=== PATIENT | female | born 1965 | race Caucasian/White ===

== ENCOUNTER 2017-12-04 10:44 | Emergency (ER) | payer OTHER | END 2017-12-04 11:51 | disposition home or self-care (01) | LOC: E/R 10:44 | DX: J02.9 Acute pharyngitis, unspecified (principal) | CPT/HCPCS: 99283; Z7502 ==

== ENCOUNTER 2018-01-15 08:41 | Emergency (ER) | payer OTHER ==
[2018-01-15] MEDS: IBUPROFEN 800 MG TAB PO (09:08)
[2018-01-15] MEDS: AMOXICILLIN 250 MG CAP PO (09:08)
[2018-01-15] MEDS ORDERED: AMOXICILLIN 500 MG CAP PO (09:30)
== END 2018-01-15 10:03 | disposition home or self-care (01) ==
LOC: E/R 08:41
DX: H66.92 Otitis media, unspecified, left ear (principal)
CPT/HCPCS: 99283; Z7502